=== PATIENT | male | born 1940 | race Caucasian/White ===

== ENCOUNTER 2017-02-10 19:28 | Emergency (ER) | payer MEDICARE, OTHER ==
[2017-02-10 19:32] VITALS: BP 149/66
[2017-02-10] MEDS ORDERED: Ketorolac 30 MG/ML SDV IVPUSH ONE (19:59)
[2017-02-10] MEDS ORDERED: Orphenadrine 100 MG Tab.ER PO ONE (19:59)
--- NOTE | 2017-02-10 20:00 | EDM.PDOC ---
ED HPI GENERAL MEDICAL PROBLEM - General Chief Complaint: Back Pain or Injury Stated Complaint: Back/hip pain Time Seen by Provider: 02/10/17 19:40 Source of Information: Reports: Patient, EMS, RN Notes Reviewed History Limitations: Reports: No Limitations - History of Present Illness INITIAL COMMENTS - FREE TEXT/NARRATIVE: 76 year old male presents to the ED with complaints of right low back pain and right hip pain. The pain has progresively worened over the past couple days and he's not having difficulty walking due to the pain. He's had no recent injury or fall. He has been bending and lifting more than normal. He's had this pain for more than 1 year. He is from [place] and is in [place] on vacation. 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 He recently had an injection into his right hip which did not help his pain. He has been taking Tylenol 500mg 1-2 times a day for pain and an occasional Aleve. No numbness or tingling. No loss of bowel or bladder function. Lower Back Pain Score (Numeric/FACES): 3 - Related Data Allergies Allergy/AdvReac Type Severity Reaction Status Date / Time No Known Allergies Allergy Verified 02/10/17 19:32 Home Meds: Home Meds Metoprolol Succinate [Toprol XL] 50 mg PO DAILY 02/10/17 [History] Multivitamin [Multivitamins] 1 each PO DAILY 02/10/17 [History] Orphenadrine [Norflex] 100 mg PO BID #15 tab.er 02/10/17 [Rx] Temazepam 15 mg PO BEDTIME PRN 02/10/17 [History] atorvaSTATin [Lipitor] 10 mg PO DAILY 02/10/17 [History] traMADol [Ultram] 50 mg PO Q6H PRN #15 tablet 02/10/17 [Rx] Past Medical History Cardiovascular History: Reports: Arrhythmia, High Cholesterol, Hypertension Musculoskeletal History: Reports: Back Pain, Chronic - Past Surgical History Musculoskeletal Surgical History: Reports: Other (See Below) Other Musculoskeletal Surgeries/Procedures:: spinal fusion Social & Family History - Tobacco Use Smoking Status *Q: Never Smoker - Recreational Drug Use Recreational Drug Use: No ED ROS GENERAL - Review of Systems Review Of Systems: See Below Constitutional: Reports: No Symptoms. Denies: Fever, Chills Respiratory: Reports: No Symptoms. Denies: Shortness of Breath Cardiovascular: Reports: No Symptoms. Denies: Chest Pain GI/Abdominal: Reports: No Symptoms. Denies: Abdominal Pain, Diarrhea, Nausea, Vomiting : Reports: No Symptoms. Denies: Dysuria, Flank Pain, Frequency, Urgency Musculoskeletal: Reports: Back Pain, Joint Pain, Muscle Pain Skin: Reports: No Symptoms. Denies: Bruising, Rash, Wound Neurological: Reports: No Symptoms. Denies: Numbness, Tingling, Weakness ED EXAM,LOWER BACK PAIN/INJURY - Physical Exam Exam: See Below Exam Limited By: No Limitations General Appearance: Alert, WD/WN, Mild Distress Respiratory/Chest: No Respiratory Distress, Lungs Clear, Normal Breath Sounds, Chest Non-Tender Cardiovascular: Normal Peripheral Pulses, Regular Rate, Rhythm GI/Abdominal: Normal Bowel Sounds, Soft, Non-Tender, No Distention. No: Guarding, Rigid, Rebound Back Exam: Normal Inspection, Decreased Range of Motion (due to spinal fusion ) , Muscle Spasm, Paraspinal Tenderness (right side ), Other (He locates his pain to his right lateral low back. This is much lower than the CVA region. The pain is worse with movement and is mostly nontender with palpation. There is no erythema, bruising, or swelling. He appears to be having muscle spasms. ). No: CVA Tenderness (L), CVA Tenderness (R), Vertebral Tenderness Extremities: Normal Inspection, Non-Tender, No Pedal Edema, Other (no pain with palpation of the right hip joint. ) Neurological: Alert, Normal Mood/Affect, Normal Dorsiflexion, Normal Plantar Flexion, No Motor/Sensory Deficits, Oriented x 3 Course - Vital Signs Last Recorded V/S: Last Vital Signs Temp 98.7 F 02/10/17 19:29 Pulse 68 02/10/17 19:29 Resp 16 02/10/17 19:29 BP 149/66 H 02/10/17 19:29 Pulse Ox 97 02/10/17 19:29 - Orders/Labs/Meds Meds: Medications Discontinued Medications Generic Name Dose Route Start Last Admin Trade Name Freq PRN Reason Stop Dose Admin Ketorolac Tromethamine 30 mg 02/10/17 19:59 02/10/17 20:04 Toradol IVPUSH 02/10/17 20:00 30 mg ONETIME ONE Administration Orphenadrine Citrate 100 mg 02/10/17 19:59 02/10/17 20:04 Norflex PO 02/10/17 20:00 100 mg ONETIME ONE Administration - Re-Assessments/Exams Free Text/Narrative Re-Assessment/Exam: This is a chronic problem as the patient reports he has been struggling with this for over a year. He has had no recent injury or fall, therefore imaging is not indicated. The patient was medicated for pain by EMS [employer]. Upon arrival his pain had improved but he was still quite uncomfortable with movement. He did not want any sedating type medications. He was given Toradol 30mg IV and Norflex 100mg PO. He was monitored and after about 1 hour, he was able to ambulate throughout the ED with minimal pain and with a steady strong gait. He is taking low doses of Tylenol which is probably not adequate. He and his family were educated on Tylenol dosing. He can also take Aleve. Prescriptions provided for Norflex and Tramadol. He was instructed only to take the Tramadol if he really needs it as it may be sedating. I think the Norflex will be the most beneficial for him as he appears to be having muscle spasms of his low back. He was instructed to f/u with his specialists when returning home to [place] on Tuesday. Departure - Departure Time of Disposition: 21:19 Disposition: Home, Self-Care 01 Condition: good Clinical Impression: Muscle spasm of back - Discharge Information Prescriptions: Orphenadrine [Norflex] 100 mg PO BID #15 tab.er traMADol [Ultram] 50 mg PO Q6H PRN #15 tablet PRN Reason: Pain (Moderate 4-6) Instructions: Muscle Cramps and Spasms, [id number] Referrals: PCP,Not In Area [Primary Care Provider] - Forms: ED Department Discharge Additional Instructions: No heavy lifting or prolonged bending at the waist Aleve 1 tab with breakfast and supper Tylenol Arthritis 2 tabs every 8 hours as needed for mild pain not relieved by Aleve Orphenadrine (Norflex) 100mg every 12 hours as needed for muscle spasm If you do not have relief with the above treatments, take Tramadol 1 tab every 6 hours as needed Follow-up with your regular orhtopedic provider when you return home to [place] Return to ER with worsening of symptoms or additional concerns
== END 2017-02-10 21:35 | disposition home or self-care (01) ==
LOC: JD.ED 19:28
DX: M62.830 Muscle spasm of back (principal); I10 Essential (primary) hypertension; E78.00 Pure hypercholesterolemia, unspecified; Z98.1 Arthrodesis status; Z79.899 Other long term (current) drug therapy
CPT/HCPCS: 96374; 99284; A9270; J1885